=== PATIENT | female | born 1990 | race Two or more races ===

== ENCOUNTER 2018-08-09 03:17 | Emergency (ER) | payer OTHER ==
[~2018-08-09] VITALS: Ht 160 cm; Wt 83.9 kg
== END 2018-08-09 09:24 | disposition home or self-care (01) ==
LOC: ER 03:17
DX: S13.4XXA Sprain of ligaments of cervical spine, initial encounter (principal); S00.83XA Contusion of other part of head, initial encounter; V49.9XXA Car occupant (driver) (passenger) injured in unspecified traffic accident, initial encounter; Y93.89 Activity, other specified; Y92.488 Other paved roadways as the place of occurrence of the external cause; Y99.8 Other external cause status